=== PATIENT | female | born 1975 | race African-American/Black ===

== ENCOUNTER 2020-09-03 08:41 | Outpatient (CLI) | payer BC | END 2020-09-03 08:42 | disposition home or self-care (01) | LOC: RAD 08:41 | PROVIDERS: ATTEND Plastic Surgery | DX: Z01.818 Encounter for other preprocedural examination (principal) | CPT/HCPCS: 71046 ==

== ENCOUNTER 2022-07-07 02:27 | Emergency (ER) | payer BC, SELFPAY | END 2022-07-07 04:17 | disposition home or self-care (01) | LOC: ERS 02:27 | DX: S05.32XA Ocular laceration without prolapse or loss of intraocular tissue, left eye, initial encounter (principal); X58.XXXA Exposure to other specified factors, initial encounter | CPT/HCPCS: 99282 ==